=== PATIENT | female | born 1970 | race Two or more races ===

== ENCOUNTER 2016-09-10 02:08 | Emergency (ER) | payer OTHER, MEDICAID ==
[~2016-09-10] VITALS: Ht 165.1 cm; Wt 68.0 kg
[2016-09-10] MEDS ORDERED: SODIUM CHLORIDE 0.9% 500 ML IV ONE (03:13)
[2016-09-10] MEDS ORDERED: ASPIRIN 81MG TABLET PO STA (03:13)
[2016-09-10 03:33] LABS: BASOPHILS % 0.8 % (0.0-2.0); EOSINOPHILS % 1.4 % (0.0-5.0); HEMATOCRIT. 35.1 % (36.0-48.0); HEMOGLOBIN. 10.9 g/dL (12.0-16.0); LYMPHOCYTES % 29.9 % (20.0-50.0); MEAN CORPUSCULAR HEMOGLOBIN 20.3 pg (28.0-32.0); MEAN CORPUSCULAR VOLUME 65.1 fL (81.0-99.0); MEAN PLATELET VOLUME 7.4 fl (7.4-10.4); MONOCYTES % 10.9 % (2.0-8.0); PLATELET 293 x1000/uL (130-400); RED BLOOD CELL COUNT 5.39 mill/uL (4.2-5.4); RED CELL DISTRIBUTION WIDTH 19.3 % (11.6-14.6)
[2016-09-10 03:41] LABS: PLATELET ESTIMATE NORMAL
[2016-09-10 03:42] LABS: PARTIAL THROMBOPLASTIN TIME 23.1 sec (24.0-34.0); PROTHROMBIN TIME 10.2 sec
[2016-09-10 03:44] LABS: HCG SCREEN NEGATIVE
[2016-09-10 03:49] LABS: CARBON DIOXIDE 23 mEq/L (21-32); CHLORIDE 100 mEq/L (98-107); TROPONIN I < 0.02 ng/mL (0.00-0.04)
[2016-09-10 04:45] VITALS: BP 120/69
[2016-09-10 04:45] LABS: CLARITY URINE CLEAR (CLEAR); COLOR URINE YELLOW (YELLOW); KETONES URINE 1+ (NEGATIVE); SPECIFIC GRAVITY URINE 1.041 (1.005-1.030)
[2016-09-10 04:46] LABS: LEUKOCYTE ESTERASE URINE NEGATIVE (NEGATIVE); NITRITE URINE NEGATIVE (NEGATIVE); OCCULT BLOOD URINE NEGATIVE (NEGATIVE); PROTEIN URINE NEGATIVE (NEGATIVE); UROBILINOGEN URINE 0.2 E.U./dL (0.2-1.0)
== END 2016-09-10 06:20 | disposition short-term general hospital (02) ==
LOC: ER 02:37 → CANBEDREQ 07:26
DX: R07.89 Other chest pain (principal); D50.9 Iron deficiency anemia, unspecified; E11.9 Type 2 diabetes mellitus without complications
CPT/HCPCS: 36415; 71010; 80053; 81001; 83690; 83880; 84443; 84484; 84703; 85025; 85379; 85610; 85730; 93005; 99285; J7030; J7040; Z7610